=== PATIENT | male | born 1985 | race Caucasian/White ===

== ENCOUNTER 2016-08-12 18:22 | Emergency (ER) | payer BC, OTHER ==
[2016-08-12 18:34] VITALS: BP 137/87
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
[2016-08-12] MEDS ORDERED: Diatrizoate Meglumine/Diatrizoate Sodium 37% 120 ML Bottle PO ONE (19:46)
[2016-08-12] MEDS ORDERED: Sodium Chloride 0.9% 10 ML Syringe FLUSH PRN (19:46)
[2016-08-12] MEDS ORDERED: Iopamidol 612 MG/ML 150 ML Bottle IVPUSH ONE (19:46)
--- NOTE | 2016-08-12 20:57 | CT ---
CT abdomen and pelvis Technique: Multiple axial sections were obtained from above the dome of the diaphragm inferiorly through the pubic symphysis. Intravenous and oral contrast was utilized. Delayed images were obtained through the bladder. Comparison: No previous study is available. Findings: Visualized lung bases shows nothing acute. Liver shows no focal parenchymal abnormality. Gallbladder shows no calcified gallstones. Adrenal glands show no nodule. Spleen appears within normal limits. Kidneys show symmetric contrast enhancement without hydronephrosis or mass. Incidental parapelvic cyst seen within the mid right kidney measuring 2.0 cm. Pancreas appears within normal limits. Aorta shows no aneurysmal dilatation. No retroperitoneal adenopathy is seen. Appendix felt to be seen which appears normal in size. No pelvic mass or adenopathy is seen. Small fat-containing left inguinal hernia is noted. Delayed images shows contrast within the distal ureters and within the bladder. No bowel dilatation is seen. No free fluid or inflammatory change is identified. Bone window settings were reviewed which appear within normal limits for the patient's age. Minimal fat-containing umbilical hernia is incidentally noted. Impression: 1. Incidental findings. No acute abnormality is identified on CT study of the abdomen and pelvis. Diagnostic code #2
== END 2016-08-12 21:35 | disposition home or self-care (01) ==
LOC: JD.ED 18:22
DX: K42.9 Umbilical hernia without obstruction or gangrene (principal); F17.210 Nicotine dependence, cigarettes, uncomplicated
CPT/HCPCS: 36415; 74177; 74177-26; 80053; 81001; 85025; 86140; 99283; 99284-25; J7050; Q9963; Q9967

== ENCOUNTER 2017-07-27 00:45 | Emergency (ER) | payer BC ==
[2017-07-27] MEDS ORDERED: HYDROmorphone 1 MG/ML Syringe IVPUSH ONE (00:46)
[2017-07-27] MEDS ORDERED: Metoclopramide 10 MG/2 ML SDV IVPUSH ONE (00:47)
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
[2017-07-27] MEDS ORDERED: Dextrose 5%-0.9% NaCl 1,000 ML IV SCH ×2 (01:00→03:00)
[2017-07-27 01:23] VITALS: BP 126/88
[2017-07-27] MEDS ORDERED: Midazolam 1 MG/ML 2 ML SDV IVPUSH ONE (01:51)
[2017-07-27] MEDS ORDERED: Potassium Chloride 10 MEQ in Premix Bag 1 BAG IV ONE (02:15)
--- NOTE | 2017-07-27 10:06 | CR ---
Left ankle: Four views of the left ankle were obtained. Posterior malleolar fracture is seen which shows displacement. Unstable ankle mortise is seen compatible with soft tissue ligamentous injury within the deltoid ligament. Soft tissue swelling is noted. No additional fracture is appreciated. Impression: 1. Displaced posterior malleolar fracture. 2. Soft tissue injury with unstable ankle mortise. 3. Soft tissue swelling. Diagnostic code #3
--- NOTE | 2017-07-27 10:06 | CR ---
Left tibia and fibula: Two views of the left tibia and fibula were obtained. Posterior malleolar fracture is again noted. Fracture is identified within the proximal one third fibular diaphysis with approximately three-quarter shaft width displacement. Soft tissue swelling is noted. No additional abnormality is appreciated. Impression: 1. Posterior malleolar fracture and proximal fibular diaphyseal fracture. 2. Soft tissue swelling. Diagnostic code #3
== END 2017-07-27 03:10 ==
LOC: JD.ED 00:45
DX: S82.832A Other fracture of upper and lower end of left fibula, initial encounter for closed fracture (principal); S82.392A Other fracture of lower end of left tibia, initial encounter for closed fracture; S93.422A Sprain of deltoid ligament of left ankle, initial encounter; F10.220 Alcohol dependence with intoxication, uncomplicated; Y90.1 Blood alcohol level of 20-39 mg/100 ml; F17.210 Nicotine dependence, cigarettes, uncomplicated; X50.9XXA Other and unspecified overexertion or strenuous movements or postures, initial encounter; Y04.0XXA Assault by unarmed brawl or fight, initial encounter; Y92.89 Other specified places as the place of occurrence of the external cause
CPT/HCPCS: 29515; 36415; 73590; 73610; 80053; 80306; 81001; 83735; 85025; 85610; 93005; 96361; 96365; 96375; 99285; G0480; J1170; J2765; J3480; J7042; 29505